=== PATIENT | female | born 1950 | race Caucasian/White ===

== ENCOUNTER 2022-03-30 16:32 | Emergency (ER) | payer MEDICARE, OTHER ==
[2022-03-30] MEDS ORDERED: NORCO 5-325 TA1 EACH PO (18:11)
== END 2022-03-30 18:23 | disposition home or self-care (01) ==
LOC: FER 16:32
DX: S01.511A Laceration without foreign body of lip, initial encounter (principal); S46.911A Strain of unspecified muscle, fascia and tendon at shoulder and upper arm level, right arm, initial encounter; W01.0XXA Fall on same level from slipping, tripping and stumbling without subsequent striking against object, initial encounter; Y92.009 Unspecified place in unspecified non-institutional (private) residence as the place of occurrence of the external cause
CPT/HCPCS: 73030; J2001